=== PATIENT | male | born 1995 | race Caucasian/White ===

== ENCOUNTER 2020-04-26 13:36 | Emergency (ER) | payer SELFPAY ==
[~2020-04-26] VITALS: Ht 175.3 cm; Wt 135.2 kg
[2020-04-26 13:41] VITALS: Ht 175.3 cm; Wt 135.2 kg
[2020-04-26 14:58] VITALS: BP 155/88
== END 2020-04-26 14:58 | disposition home or self-care (01) ==
LOC: ED 13:36
DX: S93.401A Sprain of unspecified ligament of right ankle, initial encounter (principal); W18.30XA Fall on same level, unspecified, initial encounter; Y93.89 Activity, other specified; Y92.89 Other specified places as the place of occurrence of the external cause; Y99.8 Other external cause status